=== PATIENT | female | born 1970 | race Caucasian/White ===

== ENCOUNTER 2020-06-17 04:07 | Emergency (ER) | payer OTHER ==
[~2020-06-17] VITALS: Ht 149.9 cm; Wt 73.9 kg
[~2020-06-17 04:07] MED LIST: AUGMENTIN1 TAB.CHE2 PO; PRINIVIL10 MG PO; TRAMADOL HCL-AP1 TAB PO; TRIPLIX; ULTRACEP
== END 2020-06-17 11:38 | disposition home or self-care (01) ==
LOC: ER 04:07
DX: N39.0 Urinary tract infection, site not specified (principal); M54.5 Low back pain